=== PATIENT | female | born 1970 | race Caucasian/White ===

== ENCOUNTER → 2017-09-24 | Outpatient (CLI) | payer OTHER | LOC: M RAD 12:54 | DX: J32.4 Chronic pansinusitis (principal) | CPT/HCPCS: 70486 ==

== ENCOUNTER → 2020-10-27 | Outpatient (CLI) | payer OTHER ==
[~2020-10-27] MED LIST: AZEL1SPR3; BUSP10TA; TIZA4TAB4
== END ==
LOC: M LABSMTC 10:13
PROVIDERS: ATTEND Anesthesiology
DX: Z01.818 Encounter for other preprocedural examination (principal); Z20.822 Contact with and (suspected) exposure to COVID-19

== ENCOUNTER 2020-11-01 10:22 | Day surgery (SDC) | payer OTHER ==
[~2020-11-01] VITALS: Ht 162.6 cm; Wt 71.1 kg
[~2020-11-01 10:22] MED LIST changes: +LIDOCAINE 2% 100MG/5ML SDV (FOR ANES.) As Ordered ONE; +NS 1,000 ML IV ONE; +propofoL 200 MG/20 ML VIAL As Ordered ONE
--- NOTE | 2020-11-01 12:38 | ROOR ---
Patient Name: Cindy Michael Procedure Date: 11/01/2020 12:16 PM Date of : 1970 Age: 50 Room: [facility] Gender: Female Note Status: Finalized Procedure: Colonoscopy Indications: Screening for colorectal malignant neoplasm Providers: Boris Real DO Referring MD: SOLEDAD DIGGS DO Requesting Provider: Medicines: Propofol per Anesthesia Complications: No immediate complications. Procedure: Pre-Anesthesia Assessment: - Prior to the procedure, a History and Physical was performed, and patient medications and allergies were reviewed. The patient is competent. The risks and benefits of the procedure and the sedation options and risks were discussed with the patient. All questions were answered and informed consent was obtained. Patient identification and proposed procedure were verified by the physician, the nurse, the anesthesiologist and the automotive technician instructor in the endoscopy suite. Mental Status Examination: alert and oriented. Airway Examination: normal oropharyngeal airway and neck mobility. Respiratory Examination: clear to auscultation. CV Examination: normal. Prophylactic Antibiotics: The patient does not require prophylactic antibiotics. Prior Anticoagulants: The patient has taken no previous anticoagulant or antiplatelet agents. ASA Grade Assessment: II - A patient with mild systemic disease. After reviewing the risks and benefits, the patient was deemed in satisfactory condition to undergo the procedure. The anesthesia plan was to use monitored anesthesia care (MAC). Immediately prior to administration of medications, the patient was re-assessed for adequacy to receive sedatives. The heart rate, respiratory rate, oxygen saturations, blood pressure, adequacy of pulmonary ventilation, and response to care were monitored throughout the procedure. The physical status of the patient was re-assessed after the procedure. The Colonoscope was introduced through the anus and advanced to the cecum, identified by appendiceal orifice and ileocecal valve. The colonoscopy was performed without difficulty. The patient tolerated the procedure well. Findings: A few medium-mouthed diverticula were found in the sigmoid colon. Non-bleeding internal hemorrhoids were found during retroflexion. The hemorrhoids were mild and Grade II (internal hemorrhoids that prolapse but reduce spontaneously). Impression: - Diverticulosis in the sigmoid colon. - Non-bleeding internal hemorrhoids. - No specimens collected. Recommendation: - Patient has a contact number available for emergencies. The signs and symptoms of potential delayed complications were discussed with the patient. Return to normal activities tomorrow. Written discharge instructions were provided to the patient. - Repeat colonoscopy in 5-10 years for screening purposes. - Return to my office PRN. Procedure Code(s): --- Professional --- G0121, Colorectal cancer screening; colonoscopy on individual not meeting criteria for high risk Diagnosis Code(s): --- Professional --- Z12.11, Encounter for screening for malignant neoplasm of colon K64.1, Second degree hemorrhoids K57.30, Diverticulosis of large intestine without perforation or abscess without bleeding CPT copyright 2019 [employer]. All rights reserved. The codes documented in this report are preliminary and upon student teaching coordinator review may be revised to meet current compliance requirements. Boris Real DO 11/01/2020 12:38:23 PM Electronically signed by Boris Real DO Number of Addenda: 0 Note Initiated On: 11/01/2020 12:16 PM Estimated Blood Loss: Estimated blood loss: none.
[2020-11-01 12:55] VITALS: BP 124/84
== END 2020-11-01 13:05 | disposition home or self-care (01) ==
LOC: M OPP 10:22
PROVIDERS: ATTEND Surgery
DX: Z12.11 Encounter for screening for malignant neoplasm of colon (principal); K57.30 Diverticulosis of large intestine without perforation or abscess without bleeding; K64.1 Second degree hemorrhoids; F17.210 Nicotine dependence, cigarettes, uncomplicated; Z80.0 Family history of malignant neoplasm of digestive organs; Z80.1 Family history of malignant neoplasm of trachea, bronchus and lung; Z80.3 Family history of malignant neoplasm of breast; Z80.49 Family history of malignant neoplasm of other genital organs

== ENCOUNTER → 2024-08-04 | Outpatient (CLI) | payer OTHER ==
[~2024-08-04] MED LIST changes: -LIDOCAINE 2% 100MG/5ML SDV (FOR ANES.) As Ordered ONE; -NS 1,000 ML IV ONE; +TIZA10TA; -TIZA4TAB4; -propofoL 200 MG/20 ML VIAL As Ordered ONE
== END ==
LOC: M RAD 12:14
PROVIDERS: ATTEND Otolaryngology
DX: J32.8 Other chronic sinusitis (principal)

== ENCOUNTER 2024-09-16 10:23 | Day surgery (SDC) | payer OTHER ==
[~2024-09-16] VITALS: Ht 162.6 cm; Wt 77.8 kg
[~2024-09-16 10:23] MED LIST changes: +BUSP15TA47 PO; +VENL37.598 PO
[2024-09-16] MEDS ORDERED: LR 1,000 ML IV SCH ×2 (11:15→16:20)
[2024-09-16] MEDS ORDERED: LIDOCAINE 2% 100MG/5ML SDV (FOR ANES.) As Ordered ONE (13:13)
[2024-09-16] MEDS ORDERED: ROCURONIUM BROMIDE 50MG/5ML VIAL As Ordered ONE (13:13)
[2024-09-16] MEDS ORDERED: propofoL 200 MG/20 ML VIAL As Ordered ONE (13:13)
[2024-09-16] MEDS ORDERED: MIDAZOLAM INJ 2MG/2ML VIAL As Ordered ONE (13:14)
[2024-09-16] MEDS ORDERED: fentaNYL 250 MCG/5 ML INJECTION As Ordered ONE (13:14)
[2024-09-16] MEDS ORDERED: LACRILUBE (AKWA TEARS) OPHTH OINT 3.5GM As Ordered ONE (13:51)
[2024-09-16] MEDS: COCAINE 4% 4ML NASAL SOLUTION BTL As Ordered ONE (13:58)
[2024-09-16] MEDS ORDERED: ACETAMINOPHEN 1000MG/100ML IV BAG As Ordered ONE (14:13)
[2024-09-16] MEDS ORDERED: SUGAMMADEX SODIUM 500 MG/5 ML VIAL (BRIDION) As Ordered ONE (14:13)
[2024-09-16] MEDS ORDERED: ONDANSETRON 4MG 2ML VIAL As Ordered ONE (14:13)
[2024-09-16] MEDS ORDERED: KETOROLAC 30 MG/ML 1ML VIAL As Ordered ONE (14:13)
[2024-09-16] MEDS: OXYMETAZOLINE 0.05% NASAL SPRAY As Ordered ONE (14:30)
[2024-09-16] MEDS ORDERED: LABETALOL 100MG/20ML VIAL As Ordered ONE (14:30)
[2024-09-16] MEDS: LIDOCAINE W/EPINEPHRINE 1% 20ML VIAL As Ordered ONE (15:40)
[2024-09-16] MEDS ORDERED: ONDANSETRON 4MG 2ML VIAL IV PRN (16:05)
[2024-09-16] MEDS: fentaNYL 100 MCG/2 ML INJECTION IV PRN (16:14)
[2024-09-16] MEDS ORDERED: ANEXSIA, NORCO 7.5MG/325MG TABLET(HYDROCODONE/APAP) PO PRN (16:20)
[2024-09-16] MEDS: oxyCODONE 5MG TAB PO PRN (16:39)
[2024-09-16] MEDS ORDERED: oxyCODONE 5MG TAB PO SCH (17:20)
[2024-09-16 17:30] VITALS: BP 120/84; TEMP 97.4; O2SAT 98
== END 2024-09-16 17:46 | disposition home or self-care (01) ==
LOC: M SDC 10:23
PROVIDERS: ATTEND Otolaryngology
DX: J32.4 Chronic pansinusitis (principal); J34.89 Other specified disorders of nose and nasal sinuses; R06.83 Snoring; J33.0 Polyp of nasal cavity; J34.2 Deviated nasal septum; R43.0 Anosmia; G43.909 Migraine, unspecified, not intractable, without status migrainosus; F41.9 Anxiety disorder, unspecified; Z79.899 Other long term (current) drug therapy; F17.290 Nicotine dependence, other tobacco product, uncomplicated
CPT/HCPCS: 31240; 31259; 31267; 31276; 61782; 88305; A6024; C9143; J0131; J1100; J1920; J2250; J2405; J3010

== ENCOUNTER → 2024-11-09 | Outpatient (CLI) | payer OTHER | LOC: M SLEEP 20:00 | PROVIDERS: ATTEND Physician Assistant | DX: G47.33 Obstructive sleep apnea (adult) (pediatric) (principal); R40.0 Somnolence ==